=== PATIENT | male | born 2000 | race Caucasian/White ===

== ENCOUNTER 2024-01-22 13:40 | Emergency (ER) | payer BC, MEDICAID ==
[~2024-01-22] VITALS: Ht 180.3 cm; Wt 90.7 kg
[~2024-01-22 13:40] MED LIST: METH18TA PO
[2024-01-22 14:04] VITALS: BP 135/72; TEMP 98.6; O2SAT 97
[2024-01-22] MEDS ORDERED: NAPR-1164 PO (14:29)
== END 2024-01-22 14:39 | disposition home or self-care (01) ==
LOC: ER 13:48
DX: M76.52 Patellar tendinitis, left knee (principal); G89.29 Other chronic pain; J02.9 Acute pharyngitis, unspecified; Z79.899 Other long term (current) drug therapy